=== PATIENT | male | born 1950 | race Caucasian/White ===

== ENCOUNTER → 2019-09-19 09:22 | Outpatient (CLI) | payer MEDICARE, SELFPAY ==
[2019-09-19 10:05] LABS: Absolute Lymphocyte Count 0.92 X10^3/uL (0.83-4.51); Absolute Neutrophil Count 2.1 X10^3/uL (2.0-7.7); Basophil# 0.02 X10^3/uL; Basophil% 0.5 % (0-1); Eosinophil# 0.09 X10^3/uL; Eosinophils% 2.4 % (0-5); Hematocrit 45.6 % (40-54); Hemoglobin 15.4 g/dL (13.0-16.5); Lymphocyte # 0.92 X10^3/ul (4.0); Lymphocyte % 24.6 % (19-41); Mean Corp Hgb Conc 33.8 g/dL (32-36); Mean Corpuscular Hgb 33.4 pg (27.0-32.0); Mean Corpuscular Volume 98.9 fL (80-94); Mean Platelet Vol. 11.1 fl (6.2-12.0); Monocyte# 0.56 X10^3/uL; NRBC Flagged by Analyzer 0 % (0-5); Neutrophil # 2.13 X10^3/uL (2.7-7.7); POSITIVE COUNT YES; Platelet Count 91 K/mm3 (150-450); RBC Distribution Width CV 13.1 % (11.6-14.6); RBC Distribution Width SD 47.4 fl (35.1-43.9); Red Blood Count 4.61 M/mm3 (4.6-6.2); White Blood Count 3.7 K/mm3 (4.4-11.0)
[2019-09-19 10:07] LABS: Differential Indicated SCAN CRITERIA MET
[2019-09-19 10:37] LABS: Platelet Estimate MOD DEC (ADEQ)
[2019-09-19 10:38] LABS: ALB/GLOB Ratio 0.9 RATIO (0.9-2.4); AST(SGOT) 43 U/L (15-37); Alanine Aminotransfer ALT/SGPT 46 U/L (16-61); Albumin, Serum 3.7 g/dL (3.2-5.0); Alkaline Phosphatase 109 U/L (45-117); Anion Gap 5 (5-15); BUN 16 mg/dL (7-18); BUN/Creat Ratio 16.8 RATIO (10-20); Calcium,Total 9.3 mg/dL (8.5-10.1); Chloride 107 mmol/L (98-107); Cholesterol 180 mg/dL (200); Creatinine, Serum 0.95 mg/dL (0.70-1.30); EST Glomerular Filtration Rate 84 mL/min (>60); Est Glom Filt Rate - Afr Amer 101 mL/min (>60); Glucose 103 mg/dL (74-106); High Density Lipoprotein 72 mg/dL; Potassium 4.2 mmol/L (3.5-5.1); Protein, Total 7.7 g/dL (6.4-8.2); Sodium Level 141 mmol/L (136-145); Thyroid Stim Hormone (TSH) 2.22 uIU/mL (0.358-3.74); Triglycerides 79 mg/dL; Very Low Density Lipoprotein 16 mg/dL (5-40)
== END ==
PROVIDERS: Visit Provider Family Medicine
DX: Z13.220 Encounter for screening for lipoid disorders (principal); R60.0 Localized edema
CPT/HCPCS: 36415; 80053; 80061; 84443; 85025

== ENCOUNTER 2020-02-27 20:27 | Emergency (ER) | payer MEDICARE, SELFPAY ==
[2020-02-27] VITALS (11 sets, daily range): BP systolic 140–206; BP diastolic 85–107; PULSE 86–106; RESP 14–33; TEMP 37.1–37.2; O2SAT 84–97; BMI 37.9
--- NOTE | 2020-02-27 20:28 | CT_ITS ---
STUDY: CT BRAIN WITHOUT CONTRAST REASON FOR EXAM: Male, 70 years old. Fell and hit head. RADIATION DOSAGE (If Supplied By Facility): CTDIvol = ( 44.99 ) mGy, DLP = ( 863.60 ) mGycm TECHNIQUE: Transaxial CT imaging of the brain was performed without administration of intravenous contrast material. Individualized dose optimization techniques were used for this CT. COMPARISON: No relevant priors. FINDINGS: Normal soft tissue structures. Normal calvarium. Normal size ventricles and extra-axial spaces for the patient''s age. There is mild sulcal effacement and in the lower left parietal lobe and temporal lobe. Normal basal ganglia and thalami. Normal brainstem. Normal cerebellum. There is no intracranial hemorrhage. There is a dense MCA sign suggestive of a left MCA distribution infarct. This is associated obscuration of the left lentiform nucleus. Very mild sulcal effacement on the left temporomandibular region. Normal visualized paranasal sinuses. CT/Brain/Head without Contrast IMPRESSION: 1. Left dense MCA sign suggesting a MCA distribution infarct. N.B. : The above information has been verbally conveyed by Andrzej Oviedo DO to JACKELINE Rosales MD, on 02/27/2020 20:45:19 (ET). Electronically Signed: Andrzej Oviedo DO at 20:46 EST Tel [phone], Service support ,
--- NOTE | 2020-02-27 20:28 | EKG12_ITS ---
Test Reason : STROKE Blood Pressure : / mmHG Vent. Rate : 108 BPM Atrial Rate : 108 BPM P-R Int : 140 ms QRS Dur : 136 ms QT Int : 366 ms P-R-T Axes : 015 080 -08 degrees QTc Int : 490 ms Sinus tachycardia Right bundle branch block T wave abnormality, consider inferior ischemia Abnormal ECG Confirmed by CHERYL STEELE, LINH ([id number]), editor & co founder RANDY FIGUEROA ([id number]) on 03/01/2020 2:14:35 PM Referred By: CL Confirmed By:LINH LUNA MD
--- NOTE | 2020-02-27 20:29 | CT_ITS ---
STUDY: CTA HEAD AND NECK WITH CONTRAST REASON FOR EXAM: Male, 70 years old. CVA.: Positive. RADIATION DOSAGE (If Supplied By Facility): CTDIvol = ( 26.77 ) mGy, DLP = ( 858.25 ) mGycm TECHNIQUE: CT angiography was performed with a multi-detector CT scanner. Data acquisition was obtained from the skull base through the vertex following intravenous administration of IV 100mL Isovue-370. MIP images were reconstructed from the axial data set. Post-processing of the angiographic images was performed, with multiplanar reformation and 3D reconstruction. Individualized dose optimization techniques were used for this CT. COMPARISON: No relevant priors. FINDINGS: Normal right petrous carotid artery. The left petrous carotid artery appears mildly narrower and less densely opacified when compared to the right. There is calcified plaque formation of the right cavernous carotid artery, with a moderate stenosis (50-75%). The left cavernous carotid appears narrower in diameter and less opacified than right. The distal IAC is not clearly identified. Normal right A1 segments of the anterior cerebral artery. left A1 segments of the anterior cerebral artery. This opacified by retrograde flow through the patent anterior communicating artery(ACOM). Normal bilateral A2 segments of the anterior cerebral arteries. Normal right M1 and M2 segments of the middle cerebral arteries, with a normal M1 bifurcation. There is nonvisualization of the left MCA. Both the M1 and peripheral M2 branches are not opacified. There is non-visualization of the right posterior communicating artery (PCOM). There is non-visualization of the left posterior communicating artery (PCOM). Normal bilateral vertebral arteries. Normal basilar artery with a normal basilar bifurcation. The visualized bilateral superior cerebellar (SCA) arteries are normal. Normal bilateral P1, P2 and visualized P3 segments of the posterior cerebral arteries. There is no demonstrated aneurysm of the [place]. There is sulcal effacement on the left cerebral hemisphere with decreased vascularization when compared to the left. AORTIC ARCH: Normal visualized aortic arch. Normal origins of the brachiocephalic, left common carotid, and left subclavian arteries. RIGHT CAROTID ARTERIES: Normal right common carotid artery (CCA). There is calcific plaque at the carotid bifurcation and extending upward into the right carotid bulb. There is a approximate 50% stenosis. Normal origin of the right internal carotid (ICA) artery without a hemodynamically significant stenosis. Normal visualized cervical portion of the right internal carotid artery. Normal origin of the right external carotid artery (ECA). LEFT CAROTID ARTERIES: Normal left common carotid artery (CCA). There is calcific plaque at the bifurcation extending into the carotid bulb. There is less than 50% stenosis. Normal origin of the left internal carotid (ICA) artery without a hemodynamically significant stenosis. Normal visualized cervical portion of the left internal carotid artery. Normal origin of the left external carotid artery (ECA). VERTEBRAL ARTERIES: Normal bilateral vertebral arteries. CT/CTA Head AND Neck W/ Contrast IMPRESSION: 1. Left MCA occlusion. There is associated large area of infarct. 2. Limited visualization of the left petrous and cavernous carotid arteries suggesting slow flow due to the distal occlusion. 3. Normal right MCA, anterior cerebral and posterior cerebral circulation. 4. Approximate 50% stenosis of the right carotid bulb. 5. Less than 50% stenosis of the left carotid bulb. 6. Normal vertebral arteries. N.B. : The above information has been verbally conveyed by Andrzej Oviedo DO to JACKELINE Rosales MD, on 02/27/2020 21:08:02 (ET). Electronically Signed: Andrzej Oviedo DO at 21:09 EST Tel [phone], Service support ,
[2020-02-27] MEDS: Rocuronium Bromide 50 MG/5 ML Vial 100 MG IV (20:45)
[2020-02-27] MEDS: Etomidate 20 MG/10 ML Vial IV (20:45)
[2020-02-27] MEDS: 0.9% Normal Saline 1,000 ML 100 ML IV (20:45)
[2020-02-27] MEDS: Propofol 10MG/Ml 1,000 MG/100 ML Bottle 7.2 MG CONT INF (20:50)
[2020-02-27 20:56] LABS: Absolute Lymphocyte Count 0.43 X10^3/uL (0.83-4.51); Absolute Neutrophil Count 9.5 X10^3/uL (2.0-7.7); Basophil# 0.04 X10^3/uL; Basophil% 0.3 % (0-1); Eosinophil# 0.01 X10^3/uL; Eosinophils% 0.1 % (0-5); Hematocrit 40.5 % (40-54); Hemoglobin 13.2 g/dL (13.0-16.5); Lymphocyte # 0.43 X10^3/ul (4.0); Lymphocyte % 3.7 % (19-41); Mean Corp Hgb Conc 32.6 g/dL (32-36); Mean Corpuscular Hgb 30.8 pg (27.0-32.0); Mean Corpuscular Volume 94.4 fL (80-94); Mean Platelet Vol. 11.6 fl (6.2-12.0); Monocyte# 1.14 X10^3/uL; Monocyte% 9.9 % (0-10); NRBC Flagged by Analyzer 0 % (0-5); Neutrophil # 9.51 X10^3/uL (2.7-7.7); Neutrophil % 82.2 % (47-70); POSITIVE DIFFERENTIAL YES; Platelet Count 147 K/mm3 (150-450); RBC Distribution Width CV 12.3 % (11.6-14.6); RBC Distribution Width SD 42.6 fl (35.1-43.9); Red Blood Count 4.29 M/mm3 (4.6-6.2); White Blood Count 11.6 K/mm3 (4.4-11.0)
[2020-02-27 20:58] LABS: Differential Indicated SCAN CRITERIA MET
[2020-02-27 21:05] LABS: International Normalized Ratio 1.4; Prothrombin Time (Protime)PT. 16.3 SECONDS (11.7-14.9)
[2020-02-27 21:06] LABS: Partial Thromboplast Time 26.7 Seconds (24.1-36.2)
[2020-02-27] MEDS: Labetalol (Prefilled) 20 MG/4 ML IV (21:09)
--- NOTE | 2020-02-27 21:15 | RAD_ITS ---
STUDY: X-RAY CHEST REASON FOR EXAM: Male, 70 years old. Endotracheal tube placement. NG/OG tube placement. TECHNIQUE: Single AP portable view of the chest. COMPARISON: None. FINDINGS: There is an endotracheal tube with its tip 2.8 cm above the debbie. There is an enteric tube with its tip below the left hemidiaphragm. The lungs are hypoexpanded. There is diffuse interstitial and patchy alveolar infiltrates throughout both lungs most marked in the left lung base. There is no demonstrated pleural abnormality. Normal size heart. Normal mediastinum and ronnie. Normal visualized pulmonary arteries. There is atherosclerotic calcification of the aortic arch with tortuosity. The thoracic spine is obscured by the mediastinum. There is degenerative osteoarthritis of the bilateral shoulders. There is no demonstrated abnormality of the visualized soft tissue structures of the upper abdomen. RAD/Chest 1 View IMPRESSION: 1. Endotracheal tube and enteric tube as described. 2. Patchy interstitial and alveolar infiltrates. Electronically Signed: Andrzej Oviedo DO at 21:46 EST Tel [phone], Service support ,
[2020-02-27 21:30] LABS: Allen Test Positive; Base Excess -1 mmol/L (-2 to +2); Bicarbonate 24.9 mmol/L (22-26); Blood Gas Specimen Type ART; FI02 100; Mode AC; O2 Delivery Device Adult Vent; PEEP 8; PO2 66 mmHG (75-100); RR 14; SITE R Radial; SO2 92 % (95-99); Total Carbon Dioxide 26 mmol/L; Vt 500; pCO2 43.6 mmHg (35-45); pH 7.36 (7.35-7.45)
[2020-02-27 21:31] LABS: Differential Comment SCANNED
--- NOTE | 2020-02-27 21:45 | ED.RN ---
daughter called and updated her on pt status and provided contact number to [facility] for further information
--- NOTE | 2020-02-27 21:59 | ED.DCSUM_ITS ---
History of Present Illness Chief Complaint: Neuro S/Sx Informant: Patient Narrative: 70-year-old male with no significant past medical history presents by EMS with concern for stroke. Per EMS patient's stated that he was having a bowel movement when he became acutely confused and fell. Struck his head on the ground. Patient has been confused since that time and unable to move his right side. Past Medical History - Allergies and Home Meds Allergies/Adverse Reactions: Allergies No Known Allergies Allergy (Verified 02/27/20 21:43) Primary Care Physician: Kwame Hancock MD [Primary Care Provider] - Prior records reviewed: Yes Past Medical History: None Surgical History: no surgical history Lives: Spouse/ Significant Other Smoking Status: Unknown if ever smoked Alcohol: None Drugs: None Review of Systems ROS: Unable to Obtain Physical Exam Vital Signs/Narrative: Vital Signs Temp Pulse Resp BP Pulse Ox 02/27/20 21:19 88 17 151/88 H 94 02/27/20 21:09 98.8 F 90 19 H 161/103 H 93 02/27/20 21:00 106 H 21 H 140/85 H 94 02/27/20 20:27 98.7 F 106 H 30 H 140/85 H 97 Inital Vital Signs reviewed: Yes General: Well developed Head: Normocephalic, - - Right forehead hematoma. Eyes: Perrl ENT: Moist mucous membranes Neck: Supple Cardiovascular: Regular rate, Regular rhythm Respiratory: CTA bilaterally Abdomen: Soft, Nontender, Nondistended Back: Normal Inspection Extremities: No edema Skin: Normal color Neurological: - - Right sided hemiparesis. Confusion. Alert but aphasic. NIH 17. Diagnostic/Tx/Re-eval Clinical Impression(s) from Imaging Studies Brain CT 02/27/20 20:28 IMPRESSION: 1. Left dense MCA sign suggesting a MCA distribution infarct. N.B. : The above information has been verbally conveyed by Andrzej Oviedo DO to JACKELINE Rosales MD, on 02/27/2020 20:45:19 (ET). Electronically Signed: Andrzej Oviedo DO at 20:46 EST Tel [phone], Service support , Head/Neck CTA 02/27/20 20:29 IMPRESSION: 1. Left MCA occlusion. There is associated large area of infarct. 2. Limited visualization of the left petrous and cavernous carotid arteries suggesting slow flow due to the distal occlusion. 3. Normal right MCA, anterior cerebral and posterior cerebral circulation. 4. Approximate 50% stenosis of the right carotid bulb. 5. Less than 50% stenosis of the left carotid bulb. 6. Normal vertebral arteries. N.B. : The above information has been verbally conveyed by Andrzej Oviedo DO to JACKELINE Rosales MD, on 02/27/2020 21:08:02 (ET). Electronically Signed: Andrzej Oviedo DO at 21:09 EST Tel [phone], Service support , ADDENDUM: 02/27/202115 IMPRESSION: 1. Left MCA occlusion. There is associated large area of infarct. 2. Limited visualization of the left petrous and cavernous carotid arteries suggesting slow flow due to the distal occlusion. 3. Normal right MCA, anterior cerebral and posterior cerebral circulation. 4. Approximate 50% stenosis of the right carotid bulb. 5. Less than 50% stenosis of the left carotid bulb. 6. Normal vertebral arteries. N.B. : The above information has been verbally conveyed by Andrzej Oviedo DO to JACKELINE Rosales MD, on 02/27/2020 21:08:02 (ET). Electronically Signed: Andrzej Oviedo DO at 21:09 EST Tel [phone], Service support , Chest X-Ray 02/27/20 21:15 IMPRESSION: 1. Endotracheal tube and enteric tube as described. 2. Patchy interstitial and alveolar infiltrates. Electronically Signed: Andrzej Oviedo DO at 21:46 EST Tel [phone], Service support , Laboratory Data 02/27/20 02/27/20 02/27/20 20:45 20:45 20:45 WBC 11.6 H RBC 4.29 L Hgb 13.2 Hct 40.5 MCV 94.4 H MCH 30.8 MCHC 32.6 RDW Std Deviation 42.6 RDW Coeff of Yohannes 12.3 Plt Count 147 L MPV 11.6 Immature Gran % (Auto) 3.800 H Neut % (Auto) 82.2 H Lymph % (Auto) 3.7 L Tripp % (Auto) 9.9 Eos % (Auto) 0.1 Baso % (Auto) 0.3 Absolute Neuts (auto) 9.5 H Absolute Lymphs (auto) 0.43 L Nucleated RBC % 0 Differential Comment SCANNED PT 16.3 H INR 1.4 APTT 26.7 Specimen Type Sample Site pH Bicarbonate Actual Total CO2 Base Excess O2 Saturation O2 % ABG pCO2 ABG pO2 [place] Test Respiration Rate O2 Delivery Device Vent Mode Tidal Volume POC PEEP Sodium Cancelled Potassium Cancelled Chloride Cancelled Carbon Dioxide Cancelled Anion Gap Cancelled BUN Cancelled Creatinine Cancelled Estim Creat Clear Calc Cancelled Est GFR (MDRD) Af Amer Cancelled Est GFR (MDRD) Non-Af Cancelled BUN/Creatinine Ratio Cancelled Glucose Cancelled Calcium Cancelled Troponin I Cancelled 02/27/20 21:25 WBC RBC Hgb Hct MCV MCH MCHC RDW Std Deviation RDW Coeff of Yohannes Plt Count MPV Immature Gran % (Auto) Neut % (Auto) Lymph % (Auto) Tripp % (Auto) Eos % (Auto) Baso % (Auto) Absolute Neuts (auto) Absolute Lymphs (auto) Nucleated RBC % Differential Comment PT INR APTT Specimen Type ART Sample Site R Radial pH 7.36 Bicarbonate Actual 24.9 Total CO2 26 Base Excess -1 O2 Saturation 92 L O2 % 100 ABG pCO2 43.6 ABG pO2 66 L [place] Test Positive Respiration Rate 14 O2 Delivery Device Adult Vent Vent Mode AC Tidal Volume 500 POC PEEP 8 Sodium Potassium Chloride Carbon Dioxide Anion Gap BUN Creatinine Estim Creat Clear Calc Est GFR (MDRD) Af Amer Est GFR (MDRD) Non-Af BUN/Creatinine Ratio Glucose Calcium Troponin I - Rhythm Strip Rhythm Strip: Sinus Tach Rate: 108 Ectopy: None - EKG Initial EKG Interpretation: Sinus Tachycardia - Is tachycardia 108 bpm. [place] interval 140 ms. QTC of 490 ms. Right bundle branch block. Nonspecific ST changes. - Medical Decision Making Patient evaluated in the ambulance bay and had significant right-sided deficits. Patient sent emergently to CT. Patient hypoxemic upon arrival back from CT on nonrebreather. Patient is currently diagnosed with coronavirus. Decision was made to intubate the patient given he was not protecting his airway. NIH of 17. Patient was intubated using etomidate and rocuronium with video laryngoscopy. First-pass excess. Patient then sedated with propofol. CT brain without contrast showed no acute bleeding. Concern on CTA for large vessel occlusion. After discussion with neurology at [facility] patient was given TPA bolus and infusion. Patient was transferred by air to [facility] with plan for emergent thrombectomy. Spoke with the patient's prior to TPA administration who is agreeable with this medication being given in an emergent fashion. Patient transferred in critical but stable condition. Impression: 1. Acute ischemic stroke 2. MCA occlusion 3. Acute hypoxemic respiratory failure 4. COVID 19 pnuemonia - Critical Care Time Critical care time (excluding procedures): 30-74 minutes, Discussing w/Patient &/or Family/Digital Imager, Discussing w/Consultants, Performing Direct Patient Care at Bedside Procedures Procedure(s): Endotracheal intubation. Intubated using etomidate and rocuronium. First-pass success. Video laryngoscopy and 8.0 endotracheal tube used. Patient sedated with propofol. Acute complications. ED Disposition - Plan for ED Patient: Disposition: [facility] Referrals: Kwame Hancock MD [Primary Care Provider] -
--- NOTE | 2020-02-28 03:38 | ED.RN ---
2145: [facility] here at this time. pt noted to have blood in ET tube when suctioned and nose bleed. TPA stopped at this time. bp noted at 188/107, 88, 17 & 93% ventilator
--- NOTE | 2020-02-28 03:51 | ED.RN ---
2145: tpa stopped d/t bleeding noted. 23 mls left in tpa infusion bag.
== END 2020-02-27 22:09 | disposition short-term general hospital (02) ==
PROVIDERS: Emergency Provider Emergency Medicine; PCP Family Medicine
DX: I63.512 Cerebral infarction due to unspecified occlusion or stenosis of left middle cerebral artery (principal); U07.1 COVID-19; J96.01 Acute respiratory failure with hypoxia; J18.9 Pneumonia, unspecified organism; I45.10 Unspecified right bundle-branch block
CPT/HCPCS: 31500; 36600; 70450; 70496; 70498; 71045; 82803; 85025; 85610; 85730; 93005; 94002; 96361; 96374; 96375; 99251; 99285; J2997; Q9967; A4216; G0463